=== PATIENT | female | born 2000 | race Caucasian/White ===

== ENCOUNTER 2022-10-03 15:48 | Emergency (ER) | payer OTHER, BC ==
[2022-10-03] MEDS ORDERED: Ibuprofen 200 MG TAB ONE ×2 (17:04)
[2022-10-03] MEDS ORDERED: Acetaminophen 500 MG TAB ONE (17:04)
== END 2022-10-03 17:07 | disposition home or self-care (01) ==
LOC: CSHERS 15:48
DX: S06.0XAA Concussion with loss of consciousness status unknown, initial encounter (principal); S13.4XXA Sprain of ligaments of cervical spine, initial encounter; V89.2XXA Person injured in unspecified motor-vehicle accident, traffic, initial encounter
CPT/HCPCS: 99283